=== PATIENT | female | born 1960 | race Caucasian/White ===

== ENCOUNTER → 2017-12-28 | Day surgery (SDC) | payer OTHER ==
[2017-12-25 15:54] LABS: BASOPHILS % 0.4 % (0.0-1.0); EOSINOPHILS % 0.3 % (0.0-6.0); HEMATOCRIT 36.2 % (34.2-44.1); HEMOGLOBIN 11.8 g/dL (12.0-16.0); LYMPHOCYTES # (AUTO) 1.9 (1.0-3.2); LYMPHOCYTES % 21.3 % (18.0-39.1); MEAN CORPUSCULAR HEMOGLOBIN 25.4 pg (28-32); MEAN CORPUSCULAR HGB CONC 32.6 g/dL (31-35); MONOCYTES # (AUTO) 0.2 (0.2-0.8); MONOCYTES % 2.6 % (4.4-11.3); NEUTROPHILS # (AUTO) 6.7 (2.1-6.9); NEUTROPHILS % 74.4 % (38.7-80.0); PLATELET COUNT 269 x10e3/uL (140-360); RED BLOOD COUNT 4.64 x10e6/uL (3.6-5.1); RED CELL DISTRIBUTION WIDTH 14.1 % (11.7-14.4)
--- NOTE | 2017-12-25 16:30 | Diagnostic Imaging Report ---
PROCEDURE: X-RAY CHEST, TWO VIEWS COMPARISON: Patients [facility], DX, CHEST SINGLE (PORTABLE), 02/25/2016, 9:43. INDICATIONS: Preop. FINDINGS: LUNGS: No consolidations or edema. PLEURA: No effusions or pneumothorax. HEART \T\ MEDIASTINUM: The heart is within normal size-limits. BONES \T\ SOFT TISSUES: No focal osseous lesions. Surgical clips in the upper abdomen are suggestive of cholecystectomy. CONCLUSION: No acute thoracic abnormality. Dictated by: Melissa Casiano M.D. on 12/25/2017 at 16:34 Electronically approved by: Melissa Casiano M.D. on 12/25/2017 at 16:34
[~2017-12-28] MED LIST: AMLODIPINE BESYL5 MG PO; ASPIRIN EC81 MG PO; BACLOFEN10 MG PO; CEFAZOLIN SOD 1 GM VIAL ONE; COLACE100 MG PO; CYCLOBENZAPRINE5 MG PO; DEXAMETHASONE SOD PHOS INJ 4 MG/ML VIAL ONE; FENTANYL CITRATE/PF 100MCG/2 ML INJ ONE; ISOPTO CARPINE15 ML OP; LABETALOL HCL300 MG PO; LIDOCAINE HCL 2% LOCAL INJ 5 ML SDV VIAL INJ ONE; LINZESS PO; MORPHINE SULFATE 2 MG/ML SYR ONE; MULTI-VITAMIN1 EACH PO; NORCO 5-325 TA1 EACH PO; NORCO 7.5-3251 EACH PO; OMEGA 3 FISH O1 EACH PO; OMEPRAZOLE40 MG PO; ONDANSETRON HCL INJ 2 MG/ML VIAL ONE; OSTERA TABLET1 EACH PO; PANTOPRAZOLE SO40 MG PO; PLAVIX75 MG PO; PROMETHAZINE HC25 M1 PO; PROPOFOL IV EMULSION 10 MG/ML 20 ML VIAL ONE; SEVOFLURANE INHAL SOLN 250 ML PEN BTL ONE
--- OUTSIDE RECORDS SUMMARY | 2017-12-28 07:23 | XMS REPORT ---
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 Active Problem Hypercholesterolemia 272.0 Active Problem Tricuspid valve disorder 424.2 Active Problem Mitral regurgitation 424.0 Active Problem Presence of bare metal stent in left circumflex coronary artery V45.82 Active Problem Abnormal electrocardiogram 794.31 Active Problem Benign hypertensive heart disease 402.10 Active Problem Angina pectoris 413.9 Active Problem Coronary atherosclerosis of [place] coronary artery 414.01 Active Medications Medication Code System Code Instructions Start Date End Date Status Dosage Clopidogrel Bisulfate [facility] [address]-82 75 mg Orally Once a day October 19, 2014 Active 1 tablet Social History Social History Element Qualifiers Date Reported Smoking . Status Former Smoker Quit in 2010Mar 27, 2015 Alcohol Use Yes. occasional Beer Mar 27, 2015 Alcohol Screening: Yes. Did you have a drink containing alcohol in the past year?: Yes, How often did you have a drink containing alcohol in the past year? : Monthly or less (1 point), How many drinks did you have on a typical day when you were drinking in the past year?: 1 or 2 (0 points), How often did you have six or more drinks on one occasion in the past year?: Less than monthly (1 point ), Points: 2, Interpretation: Negative Mar 27, 2015 Marital Status: . Mar 27, 2015 Do you drink alcohol? Yes. Mar 27, 2015 Occupation: . Disabled Mar 27, 2015 Summary Purpose [employer]ClinicalWorks Submission
--- OUTSIDE RECORDS SUMMARY | 2017-12-28 07:23 | XMS REPORT ---
Author Author Violette Sidhu Organization [employer] Address Unknown Phone Unavailable Care Team Providers Care Building Drafter Name Role Phone Violette Sidhu CP Unavailable Encounters Encounter Location Date Refill Plavix Violette Sidhu MD PA Mar 30, 2015 Unknown MD HERNAN Choe Apr 12, 2015 Unknown MD HERNAN Choe Jun 26, 2015 Unknown Violette Sdihu MD PA Sep 20, 2015 Unknown Violette Sidhu MD PA October 03, 2014 Unknown Violette Sidhu MD PA January 05, 2015 Unknown Violette Sidhu MD PA January 31, 2015 Unknown Violette Sidhu MD PA Feb 29, 2016 Problems Problem Type Condition ICD-9 Code Onset [...] pectoris 413.9 Active Problem Coronary atherosclerosis of [place] coronary artery 414.01 Active Medications Medication Code System Code Instructions Start Date End Date Status Dosage Amlodipine Besylate [facility] 54680580567 10MG by mouth daily Active 1 tablet Clopidogrel Bisulfate [facility] [address]-64 75 mg Orally Once a day October 19, 2014 Active 1 tablet Social History Social History Element Qualifiers Date Reported Smoking . Status Former Smoker Quit in 2010October 01, 2015 Alcohol Use Yes. occasional Beer October 01, 2015 Alcohol Screening: Yes. Did you have [...] (1 point ), Points: 2, Interpretation: Negative October 01, 2015 Marital Status: . October 01, 2015 Do you drink alcohol? Yes. October 01, 2015 Occupation: . Disabled October 01, 2015 Summary Purpose eClinicalWorks Submission
--- OUTSIDE RECORDS SUMMARY | 2017-12-28 07:23 | XMS REPORT | Clinical Summary ---
Author Author [facility] Organization [facility] Address Unknown Phone Unavailable Care Team Providers Care Bin Packer Name Role Phone Abilio Ac MD PCP Unavailable Allergies Active Allergy Reactions Severity Noted Date Comments Haloperidol Lactate 09/23/2017 Tramadol 09/23/2017 Current Medications Prescription Sig. Disp. Refills Start End Date Status Date baclofen (LIORESAL) 20 MG 06/22/20 Active tablet 17 clopidogrel (PLAVIX) 75 08/03/19 Active mg tablet 18 HYDROcodone-acetaminophen TK 1 T PO BID PRF PAIN. 0 09/17/19 Active (NORCO) 7.5-325 mg per MAX / 2 DAY 18 tablet HYDROcodone-acetaminophen 0 07/13/20 Active (NORCO) 5-325 mg per 17 tablet LINZESS 290 mcg capsule TK 1 C PO QD 3 08/12/19 Active 18 promethazine (PHENERGAN) TK 1 T PO Q 6 H 3 08/31/19 Active 25 MG tablet 18 CARAFATE 100 mg/mL 09/21/19 Active suspension 18 pravastatin (PRAVACHOL) 07/31/19 Active 20 MG tablet 18 labetalol (NORMODYNE) 300 06/26/20 Active MG tablet 17 amLODIPine (NORVASC) 10 08/17/19 Active mg tablet 18 Active Problems Problem Noted Date Incomplete bladder emptying 12/03/2017 Foul smelling urine 12/03/2017 Overactive bladder 09/23/2017 Postmenopausal atrophic vaginitis 09/23/2017 Nocturia more than twice per night 09/23/2017 Resolved Problems Problem Noted Date Resolved Date Gross hematuria 09/23/2017 12/03/2017 Encounters Date Type Specialty Care Team Description 12/03/2017 Office Visit Urology Xander Mercado MD Postmenopausal atrophic vaginitis (Primary Dx); Nocturia more than twice per night; Incomplete bladder emptying; Foul smelling urine 11/19/2017 Orders Only Urology Kat Weir MA Gross hematuria 10/27/2017 Telephone Xander Arnold MD 10/16/2017 Telephone Xander Arnold MD 10/07/2017 Orders Only Xander Arnold MD 09/24/2017 Telephone Xander Arnold MD 09/23/2017 Office Visit UrologXander Fox MD Gross hematuria (Primary Dx); Overactive bladder; Postmenopausal atrophic vaginitis; Nocturia more than twice per night after 12/27/2016 Family History Medical History Relation Name Comments Heart disease Father Cancer Mother Relation Name Status Comments Father Alive Mother Alive Social History Tobacco Use Types Packs/Day Years Used Date Former Smoker Smokeless Tobacco: Former User Alcohol Use Drinks/Week oz/Week Comments Yes Sex Assigned at Date Recorded Not on file Last Filed Vital Signs Not on file Plan of Treatment Date Type Specialty Care Team Description 01/14/2018 Office Visit Xander Arnold MD [address] [place] [address] Health Maintenance Due Date Last Done Comments CERVICAL CANCER SCREENING 1979 BREAST CANCER SCREENING 2008 COLON CANCER SCREENING 2008 SHINGRIX VACCINE (#1) 2008 INFLUENZA VACCINE 02/24/2018 Results * Urine Cytology (10/07/2017) Specimen Performing Laboratory Urine * URINALYSIS, COMPLETE, WITH REFLEX TO CULTURE (09/23/2017 2:15 PM) Component Value Ref Range Specific gravity, urine 1.021 1.005 - 1.030 pH, urine 6.0 5.0 - 7.5 Color, UA Yellow Yellow Appearance Clear Clear WBC esterase, urine Negative Negative Protein, UA Negative Negative/Trace Glucose, urine Negative Negative Ketones, UA Trace (A) Negative Occult blood, urine Negative Negative Bilirubin, UA Negative Negative Urobilinogen, UA 0.2 0.2 - 1.0 mg/dL Nitrite, UA Negative Negative Microscopic examination CommentComment: Microscopic follows if indicated. Microscopic examination See below:Comment: Microscopic was indicated and was performed. Urinalysis reflex CommentComment: This specimen will not reflex to a Urine Culture. Specimen Performing Laboratory [facility] Narrative [facility]formed at[facility] [id number] Bottom Loader: Lobito Vela MD, Phone:[phone] * Microscopic Examination (09/23/2017 2:15 PM) Component Value Ref Range WBC, UA 0-5 0 - 5 /hpf RBC, UA 0-2 0 - 2 /hpf Epithelial cells (non 0-10 0 - 10 /hpf renal) Crystals, urine Present (A) N/A Crystal type Calcium Oxalate N/A Mucus, UA Present Not Estab. Bacteria, UA None seen None seen/Few Specimen Performing Laboratory [facility] Narrative Performed at:[address] - [facility] [place] [address] [place], [id number] Bottom Loader: Lobito Vela MD, Phone:[phone] after 12/27/2016 Insurance Payer Benefit Subscriber ID Type Phone Address Plan / Group DAVID HERNANDEZ [place] xxxxxxxxx[place] [address]
--- OUTSIDE RECORDS SUMMARY | 2017-12-28 07:23 | XMS REPORT | Summary of Care ---
Author Author [facility] Organization [facility] Address Unknown Phone Unavailable Encounter HQ Renata(FIN) [id number] Date(s): 12/23/17 - 12/23/17 [facility] [address] [place] [phone] Discharge Disposition: Home or Self Care Attending Physician: Denis Andres MD Referring Physician: Oscar Pierce MD Vital Signs Most recent to 1 oldest [Reference Range]: Blood Pressure 118/76 mmHg [90-140/60-90 mmHg] (12/23/17 4:22 PM) Peripheral Pulse 84 bpm Rate [60-100 bpm] (12/23/17 4:22 PM) Weight 110.273 kg (12/23/17 4:22 PM) Problem List Condition Effective Dates Status Health Status Informant Stroke(Confirmed) Active CAD (coronary artery Active disease)(Confirmed) HTN Active (hypertension)(Confi rmed) Morbid Active obesity(Confirmed) Sleep Active apnea(Confirmed) Allergies, Adverse Reactions, Alerts Substance Reaction Severity Status Haldol Active traMADol Active Medications No Known Medications Results No data available for this section Immunizations No data available for this section Procedures Procedure Date Related Diagnosis Body Site Status Cholecystectomy Completed Hysterectomy Completed Social History Social History Type Response Substance Abuse Use: None. Alcohol Never, Previous treatment: None. Smoking Status Former smoker; Exposure to Tobacco Smoke None; Cigarette Smoking Last 365 Days No; Reg Smoking Cessation Counseling No1 entered on: 12/23/17 1Quit in 2010 Assessment and Plan No data available for this section
--- OUTSIDE RECORDS SUMMARY | 2017-12-28 07:23 | XMS REPORT ---
Author Author Violette Sidhu Organization [employer] Address Unknown Phone Unavailable Care Team Providers Care Superintendent Pipelines Name Role Phone Violette Sidhu CP Unavailable Encounters Encounter Location Date Refill Plavix Violette Sidhu MD PA Mar 30, 2015 Unknown Violette Sidhu MD PA Apr 12, 2015 Unknown Violette Sidhu MD PA Jun 26, 2015 Unknown Violette Sidhu MD PA October [...] pectoris 413.9 Active Problem Coronary atherosclerosis of [place] coronary artery 414.01 Active Medications Medication Code System Code Instructions Start Date End Date Status Dosage Aml[facility]ipine Bes[facility] [address]-12 10 mg Orally Once a day Active 1 tablet Social History Social History [...]
--- OUTSIDE RECORDS SUMMARY | 2017-12-28 07:23 | XMS REPORT ---
Author Author Violette Sidhu Organization [employer] Address Unknown Phone Unavailable Care Team Providers Care Quality Worker Name Role Phone Violette Sidhu CP Unavailable Allergies No Known Allergies Problems Problem Type Condition Code Onset Dates Condition Status Problem Pure hypercholesterolemia E78.01 Active Problem Obesity E66.9 Active Problem Hemiparesis affecting left side as late effect of cerebrovascular accident I69.354 Active Problem Coronary atherosclerosis of [place] coronary artery I25.10 Active Problem Atherosclerotic heart disease of [place] coronary artery with other forms of angina pectoris I25.118 Active Problem Benign hypertensive heart disease without congestive heart failure I11.9 Active Problem CVA, old, ataxia I69.993 Active Problem Presence of bare metal stent in anterior descending branch of left coronary artery Z95.5 Active Problem Abnormal EKG R94.31 Active Medications No Known Medications Results No Known Results Summary Purpose eClinicalWorks Submission
--- OUTSIDE RECORDS SUMMARY | 2017-12-28 07:23 | XMS REPORT | Summary of Care ---
Author Author [facility] Organization [facility] Address Unknown Phone Unavailable Encounter DANAE Yanez(ARMANDO) [id number] Date(s): 12/07/17 - 12/07/17 [facility] [address] [place] [address]- Discharge Disposition: Home or Self Care Attending Physician: Sanket Helms MD Referring Physician: Sanket Helms MD Vital Signs 1 2 3 Most recent to oldest [Reference Range]: 167.64 cm (12/04/17 2:26 PM) Height 98.5 DegF (12/04/17 2:26 PM) Temperature Oral [96.4-99.1 DegF] 118/80 mmHg (12/07/17 9:15 AM) 122/60 mmHg (12/07/17 8:45 AM) 112/61 mmHg (12/07/17 8:30 AM) Blood Pressure [90-140/60-90 mmHg] 14 BRMIN (12/07/17 8:30 AM) 13 BRMIN *LOW* (12/07/17 8:15 AM) 13 BRMIN *LOW* (12/07/17 8:00 AM) Respiratory Rate [14-20 BRMIN] 76 bpm (12/04/17 2:26 PM) Peripheral Pulse Rate [60-100 bpm] 110.057 kg (12/04/17 2:26 PM) Weight 39.16 m2 (12/04/17 2:26 PM) Body Mass Index Problem List Condition Effective Dates Status Health Status Informant Stroke(Confirmed) Active CAD (coronary artery Active disease)(Confirmed) HTN Active (hypertension)(Confi rmed) Morbid Active obesity(Confirmed) Sleep Active apnea(Confirmed) Allergies, Adverse Reactions, Alerts Substance Reaction Severity Status Haldol Active traMADol Active Medications albuterol-ipratropium 2.5-0.5 mg inhalation solution 3 mL, Route: NEB, Dosing Weight 110.057, kg, ONCE, STAT, Start date: 12/07/17 6: 39:00 CDT, Stop date: 12/07/17 6:39:00 CDT Start Date: 12/07/17 Stop Date: 12/07/17 Status: Discontinued baclofen 50 microgram, 1 mL, Route: INTRATHECAL, Drug form: INJ, ONCE, Dosing Weight 108.182, kg, Start date: 12/02/17 12:50:00 CDT, Stop date: 12/02/17 12:50:00 CDT Notes: For INTRATHECAL use only. Preservative free. (Same As: Lioresal) Start Date: 12/02/17 Stop Date: 12/02/17 Status: Completed CORAL CALCIUM CORAL CALCIUM, Refill(s) 0 Start Date: 12/04/17 Status: Ordered fentaNYL (ANES) Route: IV, Drug form: INJ, ONCE, Stop date: 12/07/17 7:58:00 CDT Start Date: 12/07/17 Stop Date: 12/07/17 Status: Completed glucosamine PO, 0 Refill(s) Start Date: 12/04/17 Status: Ordered Lactated Ringers Injection IV (ANES) 1000 mL Route: IV, Total Volume: 1,000, Start date: 12/07/17 7:40:00 CDT, Stop date: 8:40:00 CDT Start Date: 12/07/17 Stop Date: 12/07/17 Status: Completed Lactated Ringers Injection IV 1000 mL 1,000 mL, Rate: 25 ml/hr, Infuse over: 40 hr, Route: IV, Dosing Weight 110.057 kg, Total Volume: 1,000, Start date: 12/07/17 6:39:00 CDT, Duration: 30 day, Stop date: 01/06/18 6:38:00 CDT, 2.3, m2 Start Date: 12/07/17 Stop Date: 12/07/17 Status: Discontinued midazolam (ANES) Route: IV, Drug form: SOLN, ONCE, Stop date: 12/07/17 7:58:00 CDT Start Date: 12/07/17 Stop Date: 12/07/17 Status: Completed multivitamin Daily, 0 Refill(s) Start Date: 12/04/17 Status: Ordered Coleman 7.5/325 oral tablet 1 tab, PO, Q6H, 0 Refill(s) Start Date: 12/04/17 Status: Ordered [place]-3 1000 mg oral capsule 1,000 mg=1 cap, PO, TID, 0 Refill(s) Start Date: 12/04/17 Status: Ordered ondansetron (ANES) Route: IV, Drug form: INJ, ONCE, Stop date: 12/07/17 7:58:00 CDT Start Date: 12/07/17 Stop Date: 12/07/17 Status: Completed pilocarpine 5 mg oral tablet 5 mg=1 tab, PO, QID, 0 Refill(s) Start Date: 12/04/17 Status: Ordered promethazine 25 mg oral tablet 25 mg=1 tab, PO, Q6H, 0 Refill(s) Start Date: 12/04/17 Status: Ordered Vitamin D3 0 Refill(s) Start Date: 12/04/17 Status: Ordered Results HEMATOLOGY Most recent to 1 oldest [Reference Range]: Hgb [12.0-16.0 g/dL] 11.5 g/dL *LOW* (12/04/17 3:10 PM) Hct [36.0-48.0 %] 35.1 % *LOW* (12/04/17 3:10 PM) Immunizations No data available for this section Procedures Procedure Date Related Diagnosis Body Site Status Cholecystectomy Completed Hysterectomy Completed Social History Social History Type Response Substance Abuse Use: None. Alcohol Never, Previous treatment: None. Smoking Status Former smoker; Exposure to Tobacco Smoke None; Cigarette Smoking Last 365 Days No; Reg Smoking Cessation Counseling No1 entered on: 12/04/17 1Quit in 2010 Assessment and Plan Extracted from: Title: Intrathecal baclofen trial Author: Sanket Helms MD Date: 12/07/17 OP note - intrathecal baclofen trial The procedure was performed at at [facility] H&P, done within the past 30 days, was reviewed with patient prior to the procedure and patient denies significant changes. Patient pre-procedure modified Cynthia score was 3 in left upper extremity PATIENT NAME: Iveth Salazar DATE OF : 56 REFERRAL SOURCE: Connor Ac DATE OF PROCEDURE: 12/07/17 SURGEON: Sanket Helms M.D. PRE-PROCEDURE DIAGNOSIS: Hemiplegia and hemiparesis following CVA POST-PROCEDURE DIAGNOSIS: Hemiplegia and hemiparesis following CVA PROCEDURES: Intrathecal baclofen trial Fluoroscopic guidance for the above procedure ANESTHESIA: total intravenous anesthetic (TIVA) ESTIMATED BLOOD LOSS: Minimal IV FLUIDS: Per anesthetic/nursing record COMPLICATIONS: None PROCEDURE IN DETAIL: The patient was identified in the procedure room. Risks, benefits, and alternatives were discussed, all questions were answered, and the patient desired to proceed. Consent was noted in the chart and a time out was performed. Then the patient was made comfortable in the prone position on the procedure table. Pressure points were checked and padded awake. Vital signs were stable.Anesthesia was provided as indicated above. An antiseptic solution was used over the area followed by sterile draping. Fluoroscopy was used to optimize the approach over the lumbar spine. A skin wheal was raised with lidocaine 1% using a 25 gauge 1.5 inch needle and carried deep into the subcutaneous tissue. Then an 22 gauge 3.5 inch Quinckie needle was advanced into the subarachnoid space at the L1-L2 level with fluoroscopic guidance. Aspiration was positive for a clear fluid yielding 1 mL total volume. 2 mL of Omnipaque 300 was then injected under live fluoroscopy with dye spread consistent with a subarachnoid injection. Then 50mcg of baclofen in 1mL 0.9% preservative free saline was injected. The needles were then removed and the tips were noted to be intact. Pressure was applied to the puncture site to prevent ecchymosis and oozing. The site was cleaned and a band-aid was placed over the injection site. The patient was transferred to a stretcher and taken to the recovery area in stable condition. The patient tolerated the procedure well, suffered no apparent adverse events. The patient was then observed until discharge criteria met to evaluate spasticity improvement and monitor for potential side effects from the procedure. Post procedure modified Cynthia score was 1, and patient was happy with trial result. Will proceed with implant of intrathecal pump. Discharge Note/Follow Up Care: Post-op diagnosis - same as above Findings - no significant findings Discharge - home, with responsible adult Medication - resume home medications Activity - resume home activity Diet - resume home diet Medication reconciliation - yes Follow-up - as scheduled or in 2 weeks,
--- OUTSIDE RECORDS SUMMARY | 2017-12-28 07:23 | XMS REPORT ---
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 Active Problem Hypercholesterolemia 272.0 Active Problem Mitral regurgitation 424.0 Active Problem Angina pectoris 413.9 Active Problem Tricuspid valve disorder 424.2 Active Problem Abnormal electrocardiogram 794.31 Active Problem Benign hypertensive heart disease 402.10 Active Problem Coronary atherosclerosis of [place] coronary artery 414.01 Active Problem Coronary angioplasty status V45.82 Active Medications Medication Code System Code Instructions Start Date End Date Status Dosage Amlodipine Besylate [facility] [address]-01 5 MG Orally twice a day (bid) Active 1 tablet Social History Social History Element Qualifiers Date Reported Smoking . Status Former Smoker Quit in 2010October 19, 2014 Alcohol Use Yes. occasional Beer October 19, 2014 Alcohol Screening: Yes. Did you have a [...] point ), Points: 2, Interpretation: Negative October 19, 2014 Marital Status: . October 19, 2014 Do you drink alcohol? Yes. October 19, 2014 Occupation: . Disabled October 19, 2014 Summary Purpose eClinicalWorks Submission
--- OUTSIDE RECORDS SUMMARY | 2017-12-28 07:23 | XMS REPORT | Summary of Care ---
Author Author [facility] Organization [facility] Address Unknown Phone Unavailable Encounter HQ Encntr_alias(FIN) [id number] Date(s): 06/24/17 - 06/25/17 [facility] [address] [place] [phone] Vital Signs No data available for this section Problem List Condition Effective Dates Status Health Status Informant Morbid Active obesity(Confirmed) Allergies, Adverse Reactions, Alerts No data available for this section Medications No data available for this section Results No data available for this section Immunizations No data available for this section Procedures Procedure Date Related Diagnosis Body Site Cholecystectomy Hysterectomy Social History Social History Type Response Smoking Status Former smoker; Exposure to Tobacco Smoke None; Cigarette Smoking Last 365 Days No; Reg Smoking Cessation Counseling No1 1Quit in 2010 Assessment and Plan No data available for this section
--- OUTSIDE RECORDS SUMMARY | 2017-12-28 07:23 | XMS REPORT ---
Author Author [facility] Address Unknown Phone Unavailable Care Team Providers Care Electrical Instrument Technician Name Role Phone RAFA REDMOND Unavailable Unavailable Problems This patient has no known problems. Allergies, Adverse Reactions, Alerts This patient has no known allergies or adverse reactions. Medications This patient has no known medications. Results Test Description Test Time Test Comments Text Results Atomic Results Result Comments CHEST [address] [facility] [address] [place], [place] [address] Patient Name: GARY SALAZAR MR #: [id number] : 1960 Age/Sex: 57/F Req #: [id number] Adm Physician: Ordered by: NATHALY LANDON MD Report #: [id number] Location: OR Room/Bed: Procedure: DX/ CHEST 2 VIEWS Exam Date: 12/25/17 Exam Time: 1531 REPORT STATUS: Signed PROCEDURE: X-RAY CHEST, TWO VIEWS COMPARISON: [facility], DX, CHEST SINGLE (PORTABLE), 02/25/2016, 9:43. INDICATIONS: Preop. FINDINGS: LUNGS: No consolidations or edema. PLEURA: No effusions or pneumothorax. HEART T MEDIASTINUM: The heart is within normal size-limits. BONES T SOFT TISSUES: No focal osseous lesions. Surgical clips in the upper abdomen are suggestive of cholecystectomy. CONCLUSION: No acute thoracic abnormality. Dictated by: Robbie Casiano M.D. on 12/25/2017 at 16:34 Electronically approved by: Robbie Casiano M.D. on 12/25/2017 at 16:34 Dictated By: ROBBIE CASIANO MD [id number] Transcribed By: NATHANIEL on 12/25/17 1634 COPY TO: NATHALY LANDON MD
--- OUTSIDE RECORDS SUMMARY | 2017-12-28 07:23 | XMS REPORT ---
Author Author Violette Sidhu Organization [employer] Address Unknown Phone Unavailable Care Team Providers Care Cash Management Officer Name Role Phone Violette Sidhu CP Unavailable Allergies No Known Allergies Problems Problem Type Condition Code Onset Dates Condition Status Problem CVA, old, ataxia I69.993 Active Problem Pure hypercholesterolemia E78.01 Active Problem Benign hypertensive heart disease without congestive heart failure I11.9 Active Problem Hemiparesis affecting left side as late effect of cerebrovascular accident I69.354 Active Problem Atherosclerotic heart disease of [place] coronary artery with other forms of angina pectoris I25.118 Active Problem Patient unable to exercise Z78.9 Active Problem Obesity E66.9 Active Problem Abnormal EKG R94.31 Active Problem Presence of bare metal stent in anterior descending branch of left coronary artery Z95.5 Active Problem Coronary atherosclerosis of [place] coronary artery I25.10 Active Medications No Known Medications Results No Known Results Summary Purpose [employer] Submission
--- OUTSIDE RECORDS SUMMARY | 2017-12-28 07:23 | XMS REPORT | Summary of Care ---
Author Author [facility] Organization [facility] Address Unknown Phone Unavailable Encounter HQ Encntr_[email or web address](FIN) [id number] Date(s): 12/11/17 - 12/12/17 [facility] [address] [place] [phone] Vital Signs No data available for this section Problem List Condition Effective Dates Status Health Status Informant Stroke(Confirmed) Active CAD (coronary artery Active disease)(Confirmed) HTN Active (hypertension)(Confi rmed) Morbid Active obesity(Confirmed) Sleep Active apnea(Confirmed) Allergies, Adverse Reactions, Alerts Substance Reaction Severity Status Haldol Active traMADol Active Medications No data available for this section [...] 12/04/17 1Quit in 2010 Assessment and Plan No data available for this section
--- OUTSIDE RECORDS SUMMARY | 2017-12-28 07:23 | XMS REPORT ---
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
--- OUTSIDE RECORDS SUMMARY | 2017-12-28 07:23 | XMS REPORT ---
Author Author Violette Sidhu Organization [employer] Address Unknown Phone Unavailable Care Team Providers Care Supervisor Specialty Plant Name Role Phone Violette Sidhu CP Unavailable Encounters Encounter Location Date Refill Plavix Violette Sidhu MD [place] Mar 30, 2015 Unknown Violette Sidhu MD [place] Apr 12, 2015 Unknown Violette Sidhu MD [place] Jun 26, 2015 Unknown Violette Sidhu MD [place] Sep 20, 2015 Unknown Violette Sidhu MD [place] October 03, 2014 Unknown Violette Sidhu MD [place] January 05, 2015 Unknown Violette Sidhu MD [place] January 31, 2015 Unknown Violette Sidhu MD [place] Feb 29, 2016 Unknown Violette Sidhu MD [place] Apr 25, 2016 Problems Problem Type Condition ICD-9 Code Onset Dates Condition Status Problem Presence of bare metal stent in anterior descending branch of left coronary artery Z95.5 Active Problem Abnormal EKG R94.31 Active Problem Coronary atherosclerosis of [place] coronary artery I25.10 Active Problem Pure hypercholesterolemia E78.0 Active Problem Obesity E66.9 Active Problem Benign hypertensive heart disease without congestive heart failure I11.9 Active Problem CVA, old, ataxia I69.993 Active Medications Medication Code System Code Instructions Start Date End Date Status Dosage Labetalol HCl [facility] [address]-81 300 MG Orally twice a day (bid) Active 1 tablet Social History Social History Element Qualifiers Date Reported Smoking . Status Former Smoker Quit in 2010Apr 23, 2016 Alcohol Use Yes. occasional Beer Apr 23, 2016 Alcohol Screening: Yes. Did you have a [...] (1 point ), Points: 2, Interpretation: Negative Apr 23, 2016 Marital Status: . Apr 23, 2016 Do you drink alcohol? Yes. Apr 23, 2016 Occupation: . Disabled Apr 23, 2016 Summary Purpose [employer] Submission
--- OUTSIDE RECORDS SUMMARY | 2017-12-28 07:23 | XMS REPORT ---
Author Author Violette Sidhu Organization [employer] Address Unknown Phone Unavailable Care Team Providers Care Melt House Centrifugal Operator Name Role Phone Violette Sidhu CP Unavailable Encounters Encounter Location Date Refill Plavix Violette Sidhu MD [place] Mar 30, 2015 Unknown MD [facility]NAN [facility]oe Apr 12, 2015 Unknown Violette Sidhu MD [...] pectoris 413.9 Active Problem Coronary atherosclerosis of [place] coronary artery 414.01 Active Medications Medication Code System Code Instructions Start Date End Date Status Dosage Amlodipine Besylate [facility] [address]-07 10 mg Orally Once a day Active 1 tablet Social History Social History Element Qualifiers Date Reported Smoking . Status Former Smoker Quit in 2010September 25, 2015 Alcohol Use Yes. occasional Beer September 25, 2015 Alcohol Screening: Yes. Did you have [...] (1 point ), Points: 2, Interpretation: Negative September 25, 2015 Marital Status: . September 25, 2015 Do you drink alcohol? Yes. September 25, 2015 Occupation: . Disabled September 25, 2015 Family history Qualifier Description Comment Date Reported Maternal Grandmother Comment not available September 25, 2015 Paternal Grandmother Comment not available September 25, 2015 Siblings Comment not available September 25, 2015 Maternal Grandfather Comment not available September 25, 2015 Children Comment not available September 25, 2015 Father alive CAD S/P Cath, HTN , Hypercholesterolemia September 25, 2015 Paternal Grandfather Comment not available September 25, 2015 Mother Lung Cancer September 25, 2015 Other: Comment not available September 25, 2015 Summary Purpose [employer] Submission
--- NOTE | 2017-12-28 12:23 | Operative Report ---
DATE OF PROCEDURE: December 28, 2017 CANE FLUME WATCHER: Finn Obregon PA-C The patient was brought to the operating room for induction of anesthesia. Throughout this case, my PA's assistance was necessary for retraction of soft tissue and positioning of the extremity. This allows for efficient and technically successful execution of the operation and is considered medically necessary. PREOPERATIVE DIAGNOSIS: Right carpal tunnel syndrome. POSTOPERATIVE DIAGNOSIS: Right carpal tunnel syndrome. PROCEDURE: Right endoscopic carpal tunnel release. INDICATIONS: The patient is a medically frail, 57-year-old lady who has signs and symptoms consistent with right carpal tunnel syndrome. She has failed conservative management and would like to proceed with definitive intervention. The risks and benefits of an endoscopic versus open carpal tunnel release have been explained. She states she understands and wishes to proceed. PROCEDURE: The patient was brought to the operating room. She was placed under general anesthetic. Prophylactic antibiotics were given in the holding area. The right upper extremity was prepped and draped in a sterile manner. A well-padded tourniquet was placed on the upper arm and inflated to 250 mmHg. An operative time out was performed. A 1-cm incision was made over the flexion crease of the wrist. The palmaris longus was retracted to the radial side of the wound. The flexor retinaculum was elevated and incised with a pair of sharp tenotomy scissors. An elevator was used to tease the tenosynovium off the undersurface of the transverse carpal ligament. Dilators were placed, and the hook of the hamate was palpated. The Micro[employer]ire endoscope was then placed into the carpal tunnel. The undersurface of the ligament was cleanly visualized without evidence of soft tissue interposition. The knife was deployed, and the ligament was cut from distal to proximal. Full-thickness cut was noted. The proximal retinaculum was then incised under direct visualization using a pair of blunt Metzenbaum scissors. The wound was irrigated and closed with 2 interrupted 4-0 nylon stitches. A sterile bandage was applied, and the patient was extubated. The patient was transferred to the recovery room in stable condition. Blood loss was less than 5 mL, and at the end of the procedure needle and sponge counts were correct. Job#: [id number]
== END | disposition home or self-care (01) ==
LOC: OR 07:20
PROVIDERS: ATTEND Specialist
DX: G56.01 Carpal tunnel syndrome, right upper limb (principal); I69.334 Monoplegia of upper limb following cerebral infarction affecting left non-dominant side; I25.10 Atherosclerotic heart disease of native coronary artery without angina pectoris; I10 Essential (primary) hypertension; G47.33 Obstructive sleep apnea (adult) (pediatric); Z01.812 Encounter for preprocedural laboratory examination; Z01.818 Encounter for other preprocedural examination; Z79.82 Long term (current) use of aspirin; Z79.02 Long term (current) use of antithrombotics/antiplatelets; Z68.39 Body mass index [BMI] 39.0-39.9, adult; Z95.5 Presence of coronary angioplasty implant and graft; Z87.891 Personal history of nicotine dependence
CPT/HCPCS: 29848; 36415; 71046; 85025; J0690; J1100; J2001; J2270; J2405

== ENCOUNTER → 2024-04-25 | Outpatient (REF) | payer BC, MEDICARE ==
[~2024-04-25] MED LIST changes: +ACETAMINOPHEN325 M1 PO; +ATIVAN0.5 MG PO; -CEFAZOLIN SOD 1 GM VIAL ONE; +CEFDINIR300 MG PO; +CYCLOBENZAPRINE10 MG PO; -DEXAMETHASONE SOD PHOS INJ 4 MG/ML VIAL ONE; +DOCUSATE SODIU100 MG PO; +EVOXAC30 MG; -FENTANYL CITRATE/PF 100MCG/2 ML INJ ONE; +FERROUS SULFAT325 MG PO; -LIDOCAINE HCL 2% LOCAL INJ 5 ML SDV VIAL INJ ONE; +MELATONIN3 MG PO; +MIRALAX17 GM PO; -MORPHINE SULFATE 2 MG/ML SYR ONE; +NITROSTAT0.4 MG SL; +NORVASC5 MG PO; -ONDANSETRON HCL INJ 2 MG/ML VIAL ONE; +ONDANSETRON2 MG/1 ML PO; +PRAVASTATIN SOD40 MG; -PROPOFOL IV EMULSION 10 MG/ML 20 ML VIAL ONE; -SEVOFLURANE INHAL SOLN 250 ML PEN BTL ONE; +TRAZODONE HCL100 MG PO; +ULTRAM 50MG50 MG PO; +VITAMIN C 500500 MG PO
== END ==
LOC: DX 10:39
PROVIDERS: ATTEND Family Medicine
DX: R13.12 Dysphagia, oropharyngeal phase (principal)
CPT/HCPCS: 74230